=== PATIENT | female | born 1960 | race Caucasian/White ===

== ENCOUNTER → 2016-12-07 | Outpatient (CLI) | payer OTHER ==
[~2016-12-07] MED LIST: ALPR.25T PO; CEPH500C PO; SULF1TAB38 PO
--- NOTE | 2016-12-07 16:34 | Diagnostic Imaging Report ---
INDICATION: Shortness of breath. PA and lateral chest. FINDINGS: Heart size and pulmonary vascularity are normal. Lungs are clear. There are no effusions or pneumothoraces. IMPRESSION: Negative chest. Dictated by: Dictated on workstation # [id number]
== END ==
LOC: RAD 16:10
PROVIDERS: ATTEND Family Medicine
DX: R05 Cough (principal); R06.02 Shortness of breath; R06.2 Wheezing
CPT/HCPCS: 71020

== ENCOUNTER → 2018-03-14 | Outpatient (CLI) | payer OTHER ==
--- NOTE | 2018-03-14 11:28 | Diagnostic Imaging Report ---
INDICATION: Routine screening. COMPARISON: 09/08/2015 and 04/16/2014. TECHNIQUE: 2D and 3D bilateral screening mammography was performed with CAD. FINDINGS: Scattered fibroglandular densities are identified bilaterally. The circumscribed density in the central right breast has decreased in size when compared to the prior exam, suggestive of diminution of a cyst. The smaller circumscribed densities in the retroareolar right breast appear stable. The small circumscribed densities in the right breast also appear stable. No spiculated mass or malignant appearing microcalcifications are seen. The axillae are unremarkable. IMPRESSION: No mammographic features suspicious for malignancy are identified. ACR BI-RADS Category 2: Benign findings. Result letter will be mailed to the patient. Note: At least 10% of breast cancer is not imaged by mammography. Dictated by: Dictated on workstation # [id number]
== END ==
LOC: RAD 07:29
PROVIDERS: ATTEND Family Medicine
DX: Z12.31 Encounter for screening mammogram for malignant neoplasm of breast (principal)
CPT/HCPCS: 77067

== ENCOUNTER → 2019-01-09 | Outpatient (CLI) | payer OTHER ==
--- NOTE | 2019-01-09 15:15 | Diagnostic Imaging Report ---
PROCEDURE: CT abdomen and pelvis without contrast. TECHNIQUE: Multiple contiguous axial images were obtained through the abdomen and pelvis without the use of intravenous contrast. Auto Exposure Controls were utilized during the CT exam to meet ALARA standards for radiation dose reduction. INDICATION: Hematuria. No prior studies are available for comparison. The lung bases are clear. The liver and gallbladder are unremarkable. No biliary duct dilatation is seen. Pancreas and spleen are unremarkable. No adrenal mass is identified. No renal calculi or hydronephrosis is identified. No ureteral or bladder calculi are detected. The aorta is calcified but nonaneurysmal. The small and large bowel loops are unremarkable. Appendix is visualized and unremarkable in the right lower quadrant. There is no ascites. The uterus is unremarkable. No definite abdominal or pelvic lymphadenopathy is seen. IMPRESSION: Unremarkable noncontrast CT of the abdomen and pelvis. No definite urinary tract calculi, mass or obstruction is identified on this noncontrast study. Dictated by: Dictated on workstation # [id number]
== END ==
LOC: RAD 14:19
PROVIDERS: ATTEND Urology
DX: R31.29 Other microscopic hematuria (principal)
CPT/HCPCS: 74176

== ENCOUNTER → 2019-09-11 | Outpatient (CLI) | payer OTHER ==
--- NOTE | 2019-09-11 13:25 | Diagnostic Imaging Report ---
INDICATION: Cough and congestion. TIME OF EXAM: 1:21 PM COMPARISON: Correlation is made with prior chest from 12/07/2016. FINDINGS: The heart size is normal. The pulmonary vascularity is unremarkable. The lungs are clear. No infiltrate, effusion or pneumothorax is detected. IMPRESSION: No acute cardiopulmonary process is detected. Dictated by: Dictated on workstation # [id number]
== END ==
LOC: RAD 13:02
PROVIDERS: ATTEND Family Medicine
DX: R05 Cough (principal); R09.89 Other specified symptoms and signs involving the circulatory and respiratory systems
CPT/HCPCS: 71046

== ENCOUNTER → 2021-03-16 | Outpatient (CLI) | payer OTHER ==
--- NOTE | 2021-03-16 13:52 | Diagnostic Imaging Report ---
INDICATION: Routine screening. COMPARISON: 03/14/2018 and 09/08/2015. TECHNIQUE: 2D and 3D bilateral screening mammography was performed with CAD. FINDINGS: Both breasts are heterogeneously dense, limiting the sensitivity of mammography. Circumscribed densities in both breasts are again noted, consistent with cysts. No spiculated mass or malignant appearing microcalcifications are seen. The axillae are unremarkable. IMPRESSION: No mammographic features suspicious for malignancy are identified. ACR BI-RADS Category 2: Benign findings. Result letter will be mailed to the patient. Note: At least 10% of breast cancer is not imaged by mammography. Dictated by: Dictated on workstation # [id number]
== END ==
LOC: RAD 09:48
PROVIDERS: ATTEND Family Medicine
DX: Z12.31 Encounter for screening mammogram for malignant neoplasm of breast (principal)
CPT/HCPCS: 77063; 77067

== ENCOUNTER 2021-05-03 08:08 | Emergency (ER) | payer OTHER ==
[~2021-05-03] VITALS: Ht 170 cm; Wt 76.3 kg
[2021-05-03] MEDS ORDERED: ORPHENADRINE 60 MG/2 ML (NORFLEX) AMP (ED ONLY) IM ONE (09:00)
[2021-05-03] MEDS ORDERED: CYCL10TA9 PO (09:05)
--- NOTE | 2021-05-03 09:05 | ED Neck-Back Pain/Injury ---
General Chief Complaint: General Problems/Pain Stated Complaint: L EAR PAIN Nursing Triage Note: AMB TO ROOM WITH . PATENT REPORTS THAT WAS ON A PLANE TURNED TO LOOK OUT WINDOW ON SAT FELT A POP BEHINDE L EAR HAS HAD PAIN SINCE. HAS NOT TRIED ANY OTC PAIN MEDS. Source of Information: Patient, Spouse Exam Limitations: No Limitations History of Present Illness Date Seen by Provider: May 03, 2021 Time Seen by Provider: 08:43 Initial Comments Patient to the ER by private conveyance with her spouse and chief complaint that on Sunday she flew in from [place] and had turned her head while she was on the plane and felt a popping grating sensation in her neck. The next morning when she woke up her neck was in spasm and sore on the left side, ipsilateral to her popping. No other injury to her neck or head. No ear pain or fullness. No sore throat fever chills cough shortness of air. Patient has not taken anything for the pain. She has a anaphylactic reaction to NSAIDs. The pain is spasmodic and reproduced by moving her neck or shoulders. Allergies and Home Medications Allergies Coded Allergies: NSAIDS (Non-Steroidal Anti-Inflamma (Verified Allergy, Severe, 03/07/13) ibuprofen (Verified Allergy, Severe, 03/07/13) naproxen sodium (Verified Allergy, Severe, 03/07/13) aspirin (Verified Allergy, Unknown, 03/16/21) Home Medications Alprazolam 0.25 Mg Tablet, 1 TAB PO TID PRN PRN for ANXIETY Prescribed by: FABIÁN BRANDT on 09/21/13 0267 Cephalexin Monohydrate 500 Mg Capsule, 1 EACH PO QID Prescribed by: MINERVA JAMES on 09/21/13 0954 Patient Home Medication List Home Medication List Reviewed: Yes Review of Systems Constitutional: No chills, No diaphoresis EENTM: No ear discharge, No ear pain Respiratory: No cough, No short of breath Cardiovascular: No chest pain, No palpitations : No Musculoskeletal: No back pain; neck pain All Other Systems Reviewed Negative Unless Noted: Yes Past Tdsxntf-Dyfafx-Vyteml Hx Patient Social History Tobacco Use?: Yes Tobacco type used: Cigars Substance use?: No Alcohol Use?: Yes Alcohol Frequency: Once in a while Immunizations Up To Date PED Vaccines UTD: Yes Influenza Vaccine Up-to-Date: No; Not Current First/Initial COVID19 Vaccinat: NO Seasonal Allergies Seasonal Allergies: No Past Medical History Reproductive Disorders: No Sexually Transmitted Disease: No HIV/AIDS: No Arthritis Anxiety Recent Skin Changes Family Medical History Cancer Physical Exam Vital Signs Vital Signs - First Documented 05/03/21 08:19 Temp 36.3 Pulse 67 Resp 18 B/P (MAP) 140/83 (102) Pulse Ox 98 O2 Delivery Room Air Capillary Refill : Less Than 3 Seconds Height, Weight, BMI Height: '" Weight: 138lbs. oz. 62.422603rc; 26.00 BMI Method:Stated General Appearance: WD/WN, Anxious, Mild Distress HEENT: PERRL/EOMI, Pharynx Normal, Moist Mucous Membranes Neck: Full Range of Motion, Other (Upper belly of the sternocleidomastoid is in spasm and tender especially where it inserts on the cervical spine. No step-off or midline vertebral tenderness.) Cardiovascular: Regular Rate, Rhythm, No Edema, Normal Peripheral Pulses Respiratory: No Accessory Muscle Use, No Respiratory Distress Peripheral Pulses: 2+ Radial Pulses (R), 2+ Radial Pulses (L) Neurologic/Psychiatric: Alert, Oriented x3, No Motor/Sensory Deficits (Upper extremities motor and sensory intact), automated logistics specialist II-XII Norm as Tested Progress/Results/Core Measures Results/Orders My Orders Orders - SENG BRYSON Orphenadrine Inj (Ed Only) (Norflex Inje (05/03/21 09:00) Vital Signs/I&O 05/03/21 08:19 Temp 36.3 Pulse 67 Resp 18 B/P (MAP) 140/83 (102) Pulse Ox 98 O2 Delivery Room Air Blood Pressure Mean: 102 Progress Progress Note : Time: 09:02 Progress Note Sternocleidomastoid muscle belly is in spasm and I suspect this is related to osteoarthritis and what ever she did when she turned her neck on Sunday. We will attempt conservative management as she is not having any neurologic symptoms at this time. We did discuss their concerns and address them. Plan to put her on Tylenol, topical creams, heat and ice and muscle relaxants. Norflex IM. Departure Impression Primary Impression: Strain of sternocleidomastoid muscle Qualified Codes: S16.1XXA - Strain of muscle, fascia and tendon at neck level, initial encounter Disposition: 01 HOME, SELF-CARE Condition: Stable Departure-Patient Inst. Decision time for Depature: 09:03 Referrals: ARIANNE SALAZAR DO (PCP/Family) Primary Care Physician Patient Instructions: Neck Sprain (DC) Add. Discharge Instructions: One of the large muscles in your neck has been sprained. This is because it spasm up which is causing your pain on movement. Resting, heating pads and topical creams such as icy hot or Biofreeze can be helpful for the pain. Tylenol 1000 mg every 8 hours as necessary for pain. Cyclobenzaprine 1/2 to 1 tablet every 8 hours as necessary for muscle relaxation for spasms. Symptoms should go away over the next 1 to 2 weeks. Follow-up with your primary care doctor if you are not seeing improvement in the next week. Follow-up sooner if you are having new neurologic symptoms such as numbness and/or weakness in your arms or difficulty walking. All discharge instructions reviewed with patient and/or family. Voiced understanding. Scripts Cyclobenzaprine HCl (Cyclobenzaprine HCl) 10 Mg Tablet 5-10 MG PO Q8H PRN for SPASMS, #20 TAB 0 Refills Prov: SENG BRYSON 05/03/21 Work/School Note: Family Work Note Patient Received Medical Care In the Emergency Department On: May 03, 2021 Patient Will Be Able to Return to Work/School On: May 05, 2021 Patient Restrictions: none Copy Copies To 1: ARIANNE SALAZAR TITUS J May 03, 2021 09:04
[2021-05-03 09:37] VITALS: BP 134/85
== END 2021-05-03 09:37 | disposition home or self-care (01) ==
LOC: EDUNIT# 08:08 → ER 08:10
DX: S16.1XXA Strain of muscle, fascia and tendon at neck level, initial encounter (principal); F41.9 Anxiety disorder, unspecified; Z79.899 Other long term (current) drug therapy; X50.1XXA Overexertion from prolonged static or awkward postures, initial encounter
CPT/HCPCS: 99284

== ENCOUNTER → 2022-01-25 | Outpatient (CLI) | payer OTHER ==
[~2022-01-25] MED LIST changes: +CYCL10TA25 PO
[2022-01-25 10:25] LABS: HEMATOCRIT 46 % (35-52); MEAN CORPUSCULAR HEMOGLOBIN 30 pg (25-34); MEAN CORPUSCULAR HGB CONC 33 g/dL (32-36); MEAN CORPUSCULAR VOLUME 93 fL (80-99); MEAN PLATELET VOLUME 10.7 fL (9.0-12.2); PLATELET COUNT 313 10^3/uL (130-400); WHITE BLOOD COUNT 7.5 10^3/uL (4.3-11.0)
[2022-01-25 10:43] LABS: ALBUMIN 4.3 GM/DL (3.2-4.5); BILIRUBIN,TOTAL 0.8 MG/DL (0.1-1.0); CALCIUM 9.5 MG/DL (8.5-10.1); CREATININE SERUM 0.74 MG/DL (0.60-1.30); POTASSIUM 4.1 MMOL/L (3.6-5.0)
--- NOTE | 2022-01-25 11:17 | Diagnostic Imaging Report ---
Indication: Cough and shortness of air. Time of Exam: 10:29 AM Correlation is made with prior chest from 09/11/2019. Finding: The heart size is normal. The pulmonary vascularity is unremarkable. The lungs are clear. No infiltrate, effusion or pneumothorax is detected. Impression: No acute cardiopulmonary process is detected. Dictated by: Dictated on workstation # [id number]
== END ==
LOC: RAD 09:53
PROVIDERS: ATTEND Family Medicine
DX: R05.9 Cough, unspecified (principal); R06.02 Shortness of breath; R09.81 Nasal congestion
CPT/HCPCS: 36415; 71046; 80053; 84443; 85027

== ENCOUNTER → 2022-11-20 | Outpatient (CLI) | payer OTHER ==
--- NOTE | 2022-11-20 12:20 | Diagnostic Imaging Report ---
INDICATION: Routine screening. COMPARISON: 03/16/2021 and 03/14/2018. TECHNIQUE: 2D and 3D bilateral screening mammography was performed with CAD. FINDINGS: Both breasts are heterogeneously dense, limiting the sensitivity of mammography. The fibronodular parenchymal pattern is again noted. No spiculated mass or malignant-appearing microcalcifications are seen. The axillae are unremarkable. IMPRESSION: No mammographic features suspicious for malignancy are identified. ACR BI-RADS Category 1: Negative. Result letter will be mailed to the patient. Note: At least 10% of breast cancer is not imaged by mammography. Dictated by: Dictated on workstation # [id number]
== END ==
LOC: RAD 09:30
PROVIDERS: ATTEND Family Medicine
DX: Z12.31 Encounter for screening mammogram for malignant neoplasm of breast (principal)
CPT/HCPCS: 77063; 77067